=== PATIENT | female | born 1975 | race Caucasian/White ===

== ENCOUNTER 2022-01-06 11:50 | Emergency (ER) | payer MEDICAID ==
[~2022-01-06] VITALS: Ht 152.4 cm; Wt 91.6 kg
[2022-01-06 11:55] VITALS: BP 115/78
--- NOTE | 2022-01-06 11:55 | NUR ---
Used reinforcer # [id number] for Chinese for all triage
--- NOTE | 2022-01-06 11:57 | NUR ---
BIB self for chronic back pain x 10-15 years. Pt has PCP/ortho doctor that has instructed her to take motrin which has not relieved her pain. 10/10 pain in lower back. Pt able to turn back swiftly without obvious signs of pain. No obvious signs of trauma. No deformities noted. NKA Pmhx: HTN
[2022-01-06] MEDS ORDERED: KETOROLAC 30 MG/ML VIAL IM ONE (12:25)
[2022-01-06] MEDS ORDERED: ACET-8386 PO (12:48)
[2022-01-06] MEDS ORDERED: NAPR-1704 PO (12:48)
--- NOTE | 2022-01-06 13:15 | NUR ---
Patient discharged with v/s stable. Written and verbal after care instructions about Chronic pain given and explained. Patient alert, oriented and verbalized understanding of instructions. Ambulatory with steady gait. All questions addressed prior to discharge. ID band removed. Patient advised to follow up with PMD. Rx of Hydrocodone, naprosyn given. Patient educated on indication of medication including possible reaction and side effects. Opportunity to ask questions provided and answered.
== END 2022-01-06 13:15 | disposition home or self-care (01) ==
LOC: MED 11:50
DX: M54.50 Low back pain, unspecified (principal); I10 Essential (primary) hypertension; Z79.899 Other long term (current) drug therapy
CPT/HCPCS: 96372; 99283; J1885